=== PATIENT | male | born 1995 | race Asian ===

== ENCOUNTER 2018-09-14 09:29 | Emergency (ER) | payer SELFPAY ==
[2018-09-14 10:20] VITALS: BP 110/49; PULSE 95; RESP 18; TEMP 36.7; O2SAT 95
--- NOTE | 2018-09-14 10:29 | W.ED.GENAD ---
Discharge Plan Disposition Patient Disposition: HOME Condition: Stable Discharge Details Chief Complaint: RespSymp Clinical Impression: URI (upper respiratory infection) Primary Care Provider: Yesi Pittman ED Provider: Peewee Campbell Home Meds and New Rx's Prescriptions: New benzonatate 200 mg capsule 200 mg PO TID PRN (Reason: cough) Qty: 30 RF: 0 albuterol sulfate [Ventolin HFA] 90 mcg/actuation HFA aerosol inhaler 1 puff IH Q6H PRN (Reason: shortness of breath) Qty: 6.7 RF: 0 Discharge Instructions Instructions: Upper Respiratory Infection (ED) Additional Instructions: For any new or significant worsening of symptoms or return in fever please return to emergency department for reassessment. Otherwise use cough suppressant and inhaler as needed for symptoms and follow-up with your primary care provider if not improving over the next week. Referrals: Yesi Pittman [Primary Care Provider] - (As needed for reassessment) Discharge Data Discharge Date/Time-TO BE ENTERED AT DEPARTURE: 09/14/18 11:59 Medical Decision Making Patient presenting the emergency department for chief complaint of cold symptoms and cough. Patient states in middle the night he had severe coughing episode which caused him to be short of breath. This morning he did cough up productive phlegm but now feels that his shortness of breath has resolved but still continues to have some nasal congestion and sore throat. Patient denies any other medical history, sick contacts travel outside the [facility], or other medical problems. Physical exam shows clear lung sounds bilateral, no tachycardia, no worrisome oropharynx findings, nasal congestion is heard during exam but no other acute findings noted. 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 Chest x-ray difficult as negative. Patient prescribed Tessalon Perles and albuterol inhaler for symptoms otherwise given that he is afebrile otherwise well appearance I feel that symptomatic treatment is appropriate at this time. Return cautions discussed. HPI General Mode of arrival: ambulatory. Date/Time Provider Initiated Documentation: 09/14/18 09:32. Limitations to Documentation: no limitations. Information obtained by: RN notes reviewed. History of Present Illness 23 year old M presents to the emergency department with the chief complaint of cold symptoms, shortness of breath, described as moderate, Quality is described as other (denies pain), Patient started experiencing this day(s) (6) and it has been constant and other (Shortness of breath resolved). Patient did receive the following treatments prior to arrival, other (DayQuil) Related Data Home Medications Medication Instructions Recorded Confirmed albuterol sulfate [Ventolin HFA] 1 puff IH Q6H PRN #6.7 gm 09/14/18 benzonatate 200 mg PO TID PRN #30 cap 09/14/18 Previous Rx's Medication Instructions Recorded albuterol sulfate [Ventolin HFA] 1 puff IH Q6H PRN #6.7 gm 09/14/18 benzonatate 200 mg PO TID PRN #30 cap 09/14/18 General Stated Complaint: RespSymp MAYA: 3 Review of Systems Constitutional Denies body ache(s), Reports fever(s) and Denies headache(s) Eyes Denies eye discharge ENT Reports as per HPI, Denies ear discharge, Denies otalgia, Denies headache(s), Reports nasal congestion, Denies neck pain, Reports sinus pressure, Reports sore throat and Denies throat swelling Cardiovascular Denies chest pain and Denies dyspnea Respiratory Reports cough and Denies dyspnea Gastrointestinal Denies abdominal pain, Denies nausea and Denies vomiting Musculoskeletal Denies joint swelling and Denies neck pain Integumentary/Breasts Denies rash Neurologic Denies headache(s) Allergic/Immunologic Denies throat swelling [facility] Social History Smoking/Tobacco Use Status: Never Alcohol Intake: current Alcohol Intake frequency: a few times a month Substance use type: does not use Do you feel safe at home: Yes Do you feel safe in your relationship?: Yes Exam Const General: cooperative, comfortable and no acute distress Orientation: alert and awake [facility] Head: normal to inspection, normocephalic and atraumatic Ears: hearing grossly normal bilaterally and TM's normal bilaterally General nose exam: external nose normal Face and sinus: no erythema Mouth: oral mucosae normal, no drooling, no muffled voice and no trismus Throat: posterior oropharynx normal, tonsils normal and uvula midline Neck Neck: normal visual inspection, full ROM, no lymphadenopathy, no meningeal signs, trachea midline and supple Resp Effort & Inspection: normal respiratory effort and able to speak in complete sentences Auscultation: clear to auscultation bilaterally Cardio Rate: regular rate Rhythm: regular rhythm Heart Sounds: S1 normal, S2 normal, normal S1 and S2, no click, no gallops, no murmurs and no rubs Skin General skin exam: no rashes or lesions noted and dry skin (warm) Course Vital Signs Temperature 36.7 C 09/14/18 10:20 Pulse 95 H 09/14/18 10:20 Respiratory Rate 18 09/14/18 10:20 Blood Pressure 110/49 L 09/14/18 10:20 Pulse Oximetry 95 09/14/18 10:20 Temperature 36.7 C 09/14/18 10:20 Temperature Source Skin 09/14/18 10:20 Pulse 95 H 09/14/18 10:20 Respiratory Rate 18 09/14/18 10:20 Respiratory Effort Short of Breath 09/14/18 10:25 Respiratory Depth Normal 09/14/18 10:25 Blood Pressure 110/49 L 09/14/18 10:20 Blood Pressure Position Sitting 09/14/18 10:20 Pulse Oximetry 95 09/14/18 10:20 Oxygen Delivery Method Room Air 09/14/18 10:20 Oxygen Flow Rate 0 09/14/18 10:20 Pain Level 0 09/14/18 10:20
--- NOTE | 2018-09-14 10:40 | DI.RAD_ITS ---
SYMPTOMS/DIAGNOSIS: COUGH PA AND LATERAL CHEST: No priors. The heart is normal in size. The lungs are clear. The mediastinal structures and pleura appear intact. CONCLUSION: Normal chest.
--- NOTE | 2018-09-14 11:16 | DI.VRAD_ITS ---
EXAM: XR Chest, 2 Views EXAM DATE/TIME: 09/14/2018 10:29 AM CLINICAL HISTORY: 23 years old, male; Signs and symptoms; Patient HX: Productive cough. No surgeries. TECHNIQUE: Imaging protocol: XR of the chest, 2 views. COMPARISON: No relevant prior studies available. FINDINGS: Lungs: Unremarkable. No consolidation. Pleural space: Unremarkable. No pleural effusion. No pneumothorax. Heart/Mediastinum: Unremarkable. No cardiomegaly. Bones/joints: Unremarkable. IMPRESSION: No acute findings. Dictated and Authenticated by: Patricia Metcalf MD. Ordering:WILLI Vides MD
== END 2018-09-14 11:59 | disposition home or self-care (01) ==
PROVIDERS: Emergency Provider Nurse Practitioner Family; PCP Family Medicine
DX: J06.9 Acute upper respiratory infection, unspecified (principal); R05 Cough; R09.81 Nasal congestion
CPT/HCPCS: 99283; 71046

== ENCOUNTER 2018-09-24 14:02 | Emergency (ER) | payer SELFPAY ==
[2018-09-24 14:08] VITALS: BP 139/84; PULSE 79; RESP 16; TEMP 36.7; O2SAT 95
--- NOTE | 2018-09-24 14:14 | W.ED.GENAD ---
Discharge Plan Disposition Patient Disposition: HOME Condition: Stable Discharge Details Chief Complaint: EarProblem Clinical Impression: Acute otitis media Primary Care Provider: Yesi Pittman ED Provider: Eleazar Dimas Home Meds and New Rx's Prescriptions: New amoxicillin 500 mg tablet 500 mg PO TID Qty: 30 RF: 0 Discharge Instructions Instructions: Otitis Media (ED) Medical Decision Making 23 yo male who denies chronic med problems comes in with 4-5 days of bilateral ear aches. Denies fevers, had respiratory illness 1-2 weeks ago that has resolved. Denies fevers. He has bulging and red tm's bilaterally, normal external auditory meatus and external mastoid exams bilaterally. Will start abx and advised f/u with pcp if pain continues and return if worsening Differential Diagnosis acute otitis media, aom HPI General Mode of arrival: ambulatory. Date/Time Provider Initiated Documentation: 09/24/18 14:04. Limitations to Documentation: no limitations. Information obtained by: patient. History of Present Illness 23 year old M presents to the emergency department with the chief complaint of ear pain, described as moderate, Quality is described as aching, Patient started experiencing this day(s) (4) and it has been constant. No relieving factors improve symptom(s), No exacerbating factors reported . Patient did receive the following treatments prior to arrival, none Related Data Home Medications Medication Instructions Recorded Confirmed amoxicillin 500 mg PO TID #30 tab 09/24/18 Previous Rx's Medication Instructions Recorded amoxicillin 500 mg PO TID #30 tab 09/24/18 Allergies Allergy/AdvReac Type Severity Reaction Status Date / Time No Known Allergies Allergy Unverified 09/24/18 14:11 General Stated Complaint: EarProblem MAYA: 5 Review of Systems Review of Systems All systems reviewed & are unremarkable except as noted in HPI and below Constitutional Denies chills, Denies fever(s) and Denies weakness ENT Denies change in voice Cardiovascular Denies chest pain and Denies dyspnea Respiratory Denies cough and Denies dyspnea Gastrointestinal Denies abdominal pain, Denies nausea and Denies vomiting Integumentary/Breasts Denies rash Neurologic Denies weakness [facility] Social History Smoking/Tobacco Use Status: Never Alcohol Intake: current Alcohol Intake frequency: a few times a month Substance use type: does not use Do you feel safe at home: Yes Do you feel safe in your relationship?: Yes Exam Const General: no acute distress Orientation: alert HENMT Head: normal to inspection Ears: external ears normal General nose exam: external nose normal Mouth: moist mucous membranes Eyes General: appearance normal, both eyes and all related structures Neck Neck: normal visual inspection Resp Effort & Inspection: normal respiratory effort and able to speak in complete sentences Cardio Rate: regular rate Skin General skin exam: no rashes or lesions noted Neuro General: alert and oriented x3 Extrem General: normal to inspection Psych Mental Status: mental status grossly normal Course Vital Signs Temperature 36.7 C 09/24/18 14:08 Pulse 79 09/24/18 14:08 Respiratory Rate 16 09/24/18 14:08 Blood Pressure 139/84 09/24/18 14:08 Pulse Oximetry 95 09/24/18 14:08 Temperature 36.7 C 09/24/18 14:08 Temperature Source Skin 09/24/18 14:08 Pulse 79 09/24/18 14:08 Respiratory Rate 16 09/24/18 14:08 Respiratory Effort 09/24/18 14:08 Blood Pressure 139/84 09/24/18 14:08 Blood Pressure Position Sitting 09/24/18 14:08 Pulse Oximetry 95 09/24/18 14:08 Oxygen Delivery Method Room Air 09/24/18 14:08 Oxygen Flow Rate 0 09/24/18 14:08 Pain Level 1 09/24/18 14:08
--- NOTE | 2018-09-24 14:17 | ED.GENADUL_ITS ---
Discharge Plan Disposition Patient Disposition: HOME Condition: Stable Discharge Details Chief Complaint: EarProblem Clinical Impression: Acute otitis media Primary Care Provider: Yesi Pittman ED Provider: Eleazar Dimas Home Meds and New Rx's Prescriptions: New amoxicillin 500 mg tablet 500 mg PO TID Qty: 30 RF: 0 Discharge Instructions Instructions: Otitis Media (ED) Medical Decision Making 23 yo male who denies chronic med problems comes in with 4-5 days of bilateral ear aches. Denies fevers, had respiratory illness 1-2 weeks ago that has resolved. Denies fevers. He has bulging and red tm's bilaterally, normal external auditory meatus and external mastoid exams bilaterally. Will start abx and advised f/u with pcp if pain continues and return if worsening Differential Diagnosis acute otitis media, aom HPI General Mode of arrival: ambulatory . Date/Time Provider Initiated Documentation: 09/24/18 14:04 . Limitations to Documentation: no limitations . Information obtained by: patient . History of Present Illness 23 year old M presents to the emergency department with the chief complaint of ear pain, described as moderate, Quality is described as aching, Patient started experiencing this day(s) (4) and it has been constant. No relieving factors improve symptom(s), No exacerbating factors reported . Patient did receive the following treatments prior to arrival, none Related Data Home Medications Medication Instructions Recorded Confirmed amoxicillin 500 mg PO TID #30 tab 09/24/18 Previous Rx's Medication Instructions Recorded amoxicillin 500 mg PO TID #30 tab 09/24/18 Allergies Allergy/AdvReac Type Severity Reaction Status Date / Time No Known Allergies Allergy Unverified 09/24/18 14:11 General Stated Complaint: EarProblem MAYA: 5 Review of Systems Review of Systems All systems reviewed & are unremarkable except as noted in HPI and below Constitutional Denies chills, Denies fever(s) and Denies weakness ENT Denies change in voice Cardiovascular Denies chest pain and Denies dyspnea Respiratory Denies cough and Denies dyspnea Gastrointestinal Denies abdominal pain, Denies nausea and Denies vomiting Integumentary/Breasts Denies rash Neurologic Denies weakness [facility] Social History Smoking/Tobacco Use Status: Never Alcohol Intake: current Alcohol Intake frequency: a few times a month Substance use type: does not use Do you feel safe at home: Yes Do you feel safe in your relationship?: Yes Exam Const General: no acute distress Orientation: alert HENMT Head: normal to inspection Ears: external ears normal General nose exam: external nose normal Mouth: moist mucous membranes Eyes General: appearance normal, both eyes and all related structures Neck Neck: normal visual inspection Resp Effort & Inspection: normal respiratory effort and able to speak in complete sentences Cardio Rate: regular rate Skin General skin exam: no rashes or lesions noted Neuro General: alert and oriented x3 Extrem General: normal to inspection Psych Mental Status: mental status grossly normal Course Vital Signs Temperature 36.7 C 09/24/18 14:08 Pulse 79 09/24/18 14:08 Respiratory Rate 16 09/24/18 14:08 Blood Pressure 139/84 09/24/18 14:08 Pulse Oximetry 95 09/24/18 14:08 Temperature 36.7 C 09/24/18 14:08 Temperature Source Skin 09/24/18 14:08 Pulse 79 09/24/18 14:08 Respiratory Rate 16 09/24/18 14:08 Respiratory Effort 09/24/18 14:08 Blood Pressure 139/84 09/24/18 14:08 Blood Pressure Position Sitting 09/24/18 14:08 Pulse Oximetry 95 09/24/18 14:08 Oxygen Delivery Method Room Air 09/24/18 14:08 Oxygen Flow Rate 0 09/24/18 14:08 Pain Level 1 09/24/18 14:08
== END 2018-09-24 14:21 | disposition home or self-care (01) ==
PROVIDERS: Emergency Provider Emergency Medicine; PCP Family Medicine
DX: H66.93 Otitis media, unspecified, bilateral (principal)
CPT/HCPCS: 99283